=== PATIENT | female | born 1945 | race American Indian/Alaskan Native ===

== ENCOUNTER 2019-09-20 20:27 | Emergency (ER) | payer OTHER ==
[2019-09-20] MEDS ORDERED: ASPIRIN 325 MG TAB PO ONE (20:51)
--- NOTE | 2019-09-20 21:17 | XRay Report ---
CHEST 1 VIEW INDICATION / CLINICAL INFORMATION: Chest Pain. COMPARISON: None available. FINDINGS: SUPPORT DEVICES: None. HEART / MEDIASTINUM: No significant abnormality. LUNGS / PLEURA: No significant pulmonary or pleural abnormality. No pneumothorax. ADDITIONAL FINDINGS: No significant additional findings. IMPRESSION: 1. No acute findings. . Signer Name: Sandor Hannah MD Signed: 09/20/2019 9:13 PM Workstation Name: [id number]
[2019-09-20 21:18] LABS: Basophils # (Auto) 0.1 K/mm3 (0.0-0.1); Basophils % (Auto) 0.9 % (0.0-1.8); Eosinophils # (Auto) 0.2 K/mm3 (0.0-0.4); Eosinophils % (Auto) 2.8 % (0.0-4.3); Hematocrit 36.5 % (30.3-42.9); Lymphocytes # (Auto) 2.5 K/mm3 (1.2-5.4); Lymphocytes % (Auto) 33.6 % (13.4-35.0); Mean Corpuscular HGB Conc 33 % (30-34); Mean Corpuscular Volume 81 fl (79-97); Monocytes # (Auto) 0.5 K/mm3 (0.0-0.8); Monocytes % (Auto) 7.3 % (0.0-7.3); Platelet Count 291 K/mm3 (140-440); Red Cell Distribution Width 15.3 % (13.2-15.2)
[2019-09-20 21:34] LABS: BUN/Creatinine Ratio 16; Blood Urea Nitrogen 11 mg/dL (7-17); Calcium 9.7 mg/dL (8.4-10.2); Hemolysis Index 48
--- NOTE | 2019-09-20 23:08 | Emergency Department Report ---
ED Chest Pain HPI - General Chief Complaint: Chest Pain Stated Complaint: CHEST PAIN Time Seen by Provider: 09/20/19 20:54 Source: family, EMS Mode of arrival: Stretcher Limitations: No Limitations - History of Present Illness Initial Comments: 74-year-old -[place] female presents to the emergency department via EMS from home with a complaint of some intermittent midsternal chest pains. Overall this is been going on for the past few days. She had a few episodes prior to presentation that lasted about 10 to 20 seconds each. She denies any shortness of breath. Patient has a past medical history of hypertension, CHF, CVA with residual right-sided weakness. The patient just recently moved here from [place] and therefore does not have any local primary care physician or data capture clerk. She is a [facility] patient. She was given a full dose aspirin by EMS, but otherwise has not taken anything for symptoms prior to presentation. She denies any fever, back pain, lower extremity swelling, vomiting or diaphoresis. She denies any tobacco or illicit drug use. Severity scale (0 -10): 2 - Related Data Allergies Allergy/AdvReac Type Severity Reaction Status Date / Time No Known Allergies Allergy Verified 09/20/19 21:12 Heart Score - HEART Score History: Slightly suspicious EKG: Non-specific Age: > 65 Risk factors: 1-2 risk factors Troponin: < normal limit HEART Score: 4 - Critical Actions Critical Actions: 4-6 pts:12-16.6% risk of adverse cardiac event. Should be admitted ED Review of Systems ROS: Stated complaint: CHEST PAIN Other details as noted in HPI Comment: All other systems reviewed and negative Constitutional: denies: chills, fever Eyes: denies: eye pain, vision change ENT: denies: ear pain, throat pain Respiratory: denies: cough, shortness of breath Cardiovascular: chest pain. denies: palpitations Gastrointestinal: denies: abdominal pain, vomiting Genitourinary: denies: dysuria, discharge Musculoskeletal: denies: back pain, arthralgia Skin: denies: rash, lesions Neurological: denies: headache, weakness ED Past Medical Hx - Past Medical History Previous Medical History?: Yes Hx Hypertension: Yes Hx CVA: Yes Hx Congestive Heart Failure: Yes Additional medical history: Brain Aneurism - Surgical History Past Surgical History?: No - Social History Smoking Status: Never Smoker Substance Use Type: None ED Physical Exam - General Limitations: No Limitations - Other Other exam information: GENERAL: The patient is well-developed well-nourished. HENT: Normocephalic. Atraumatic. Patient has moist mucous membranes. EYES: Extraocular motions are intact. NECK: Supple. Trachea is midline. CHEST/LUNGS: Clear to auscultation. There is no respiratory distress noted. HEART/CARDIOVASCULAR: Regular. There is no tachycardia. There is no murmur. ABDOMEN: Abdomen is soft, nontender. Patient has normal bowel sounds. There is no abdominal distention. SKIN: Skin is warm and dry. NEURO: The patient is awake, alert, and oriented. The patient is cooperative. Normal speech. MUSCULOSKELETAL: There is no tenderness or deformity. There is no evidence of acute injury. ED Course Vital Signs 09/20/19 09/20/19 09/20/19 20:53 20:56 21:23 Temperature 98.4 F Pulse Rate 52 L 51 L Respiratory 15 15 Rate Blood Pressure 159/76 Blood Pressure 159/76 [Right] O2 Sat by Pulse 98 98 Oximetry 09/20/19 09/21/19 23:38 01:33 Temperature Pulse Rate 50 L 46 L Respiratory 15 15 Rate Blood Pressure Blood Pressure 147/60 148/68 [Right] O2 Sat by Pulse 97 98 Oximetry - Consultations Consultation #1: 09/20/19 23:[address] Mccormack, at the [facility] transfer line, and the patient will most likely be transferred to [facility] for further evaluation of her chest pains. They are waiting for the results of the CT angiography study and then a definitive disposition will be made. GITA score - Gita Score Age > 65: (1) Yes Aspirin use within the Past 7 Days: (1) Yes 3 or more CAD Risk Factors: (0) No 2 or more Angina events in past 24 hrs: (1) Yes Known CAD with more than 50% Stenosis: (0) No Elevated Cardiac Markers: (0) No ST Deviation Greater than 0.5mm: (0) No GITA Score: 3 ED Medical Decision Making - Lab Data Result diagrams: 09/20/19 20:57 09/20/19 20:57 - EKG Data -: EKG Interpreted by Me EKG shows normal: sinus rhythm, axis, intervals (Mild prolongation of MS interva l), QRS complexes, ST-T waves (T wave inversions to the anterior, inferior and lateral leads) Rate: bradycardia (50 bpm) - EKG Data When compared to previous EKG there are: previous EKG unavailable Interpretation: other (Sinus bradycardia, prolonged MS interval, T wave inversions to the anterior, inferior and lateral leads.) - Radiology Data Radiology results: image reviewed interpreted by me: Chest x-ray does not show any acute process. There are no pleural effusions, obvious pneumonia and there is no pneumothorax. - Medical Decision Making Patient presents with intermittent chest pain. EKG did not show any signs of ST elevation KS. Negative troponins x2. Elevated and equivocal d-dimer so CT angiography was done that ended up showing dilated a sending aorta without dissection, PE or any other acute process. Patient was accepted for transfer to [facility] to be seen by [facility] physicians. - Differential Diagnosis KS, PE, dissection, pneumonia Critical Care Time: No Critical care attestation.: If time is entered above; I have spent that time in minutes in the direct care of this critically ill patient, excluding procedure time. ED Disposition Clinical Impression: Acute chest pain Hypertension Qualifiers: Hypertension type: essential hypertension Qualified Code(s): I10 - Essential (primary) hypertension Disposition: DC/TX-70 ANOTHER TYPE HLTHCARE Is pt being admited?: No Condition: Fair Instructions: Chest Pain (ED), Hypertension (ED) Referrals: PRIMARY CARE, [Primary Care Provider] - 3-5 Days Time of Disposition: 23:08
--- NOTE | 2019-09-21 01:01 | Cat Scan Report ---
CT angiography of the chest with 2-D reconstructions INDICATION: Chest pain and elevated d-dimer Thin section axial images were obtained as well as 2-D reformatted MIP images in all 3 planes FINDINGS: There is no hilar or mediastinal adenopathy. No pleural or pericardial effusion. Lung windo ws show masses or infiltrates. There is 9 mm left upper lobe nodule. There is no thoracic aortic diss ection present. Ascending aorta is dilated at 4.8 cm. Routine axial images as well as 2-D reconstruct ions through the pulmonary arteries show no evidence of emboli. IMPRESSION: Dilated ascending aorta with left upper lobe nodule. No PTE or pneumonia. Automated exposure control was utilized to diminish radiation dose. Signer Name: Robbi Casillas MD Signed: 09/21/2019 12:57 AM Workstation Name: [id number]
[2019-09-21 01:33] VITALS: BP 148/68
== END 2019-09-21 02:45 | disposition other institution (70) ==
LOC: ED 20:27
DX: R07.9 Chest pain, unspecified (principal); R53.1 Weakness; I10 Essential (primary) hypertension; Z86.73 Personal history of transient ischemic attack (TIA), and cerebral infarction without residual deficits
CPT/HCPCS: 36415; 71045; 71275; 80048; 84484; 85025; 85379; 93005; 93010; 99285; Q9967